=== PATIENT | female | born 1960 | race Caucasian/White ===

== ENCOUNTER 2024-11-30 10:07 | Observation (INO) ==
--- NOTE | 2024-11-13 11:26 | PAT Medication Instructions ---
Medication Instructions Date of Service November 13, 2024 Home Medications apixaban 2.5 mg tablet (Eliquis) 2.5 mg PO BID atenolol 25 mg tablet 25 mg PO HS citalopram 40 mg tablet (Celexa) 20 mg PO HS lorazepam 1 mg tablet 1 mg PO HS trazodone 150 mg tablet 150 mg PO HS ASK your prescriber and surgeon apixaban 2.5 mg tablet (Eliquis) 2.5 mg PO BID(in order for spinal or epidural anesthesia, Eliquis needs to be stopped 72 hours/3 days before surgery. Please check if okay with doctor that prescribes this to you) Take evening before surgery atenolol 25 mg tablet 25 mg PO HS citalopram 40 mg tablet (Celexa) 20 mg PO HS lorazepam 1 mg tablet 1 mg PO HS trazodone 150 mg tablet 150 mg PO HS Other Notes NOTHING TO EAT OR DRINK AFTER MIDNIGHT. If you have any questions please call us at [phone] or [phone] or [phone] or [phone]
--- NOTE | 2024-11-17 15:17 | Anesthesiology Consultation ---
Date of Service November 17, 2024 Assessment & Plan (1) Encounter for pre-operative examination: - Infectious disease screening: Per assessment on 11/17/24- No known recent infectious disease contacts or current infectious disease symptoms. - Outpatient joint assessment: Pt currently scheduled for inpatient pathway. If surgeon requests review for outpatient joint pathway, patient is not recommended candidate for outpatient joint program from anesthesia standpoint based on available information. - Eliquis instructions: patient made aware that for neuraxial anesthesia, Eliquis needs to be held 72 hours/3 days prior to surgery. Patient voiced understanding/will check if okay with prescriber. - Severe spinal headache after spinal/ - Cardiology visit (10/09/24): "Patient is doing well and denies any symptoms at this time.. Patient has functional class II SOB with exertion.. However did not have any chest pain, chest tightness, shortness of breath or any syncopal events.. She has no symptoms suggestive of ACS, HF or malignant arrhythmias..Will recommend continuation of Eliquis.. Atenolol.. Will recommend follow-up in 1 year.." Chart Review Chart Review: Acceptable Risk for Surgery and Patient seen in Pre Admission Testing Teaching & Discussion Pre-Anesthesia Teaching/Discussion Notes: Instructed NPO after midnight before surgery,except medications with 15 cc of water. Medication instructions provided according to the PAT guidelines. History Surgery Operation Date: 11/30/24 07:00 Proposed Procedures p Left Total Hip Arthroplasty - Erwin Walker MD Height/Weight Height: 5 ft 1 in Weight: 66.7 kg Allergies Allergy/AdvReac Type Severity Reaction Status Date / Time No Known Allergies Allergy Verified 11/09/24 12:14 Medications Home Medications Medication Instructions Recorded Confirmed Last Taken apixaban 2.5 mg tablet (Eliquis) 2.5 mg PO BID 11/09/24 11/09/24 Unknown atenolol 25 mg tablet 25 mg PO HS 11/09/24 11/09/24 Unknown citalopram 40 mg tablet (Celexa) 20 mg PO HS 11/09/24 11/09/24 Unknown lorazepam 1 mg tablet 1 mg PO HS 11/09/24 11/09/24 Unknown trazodone 150 mg tablet 150 mg PO HS 11/09/24 11/09/24 Unknown Past Medical History Medical History Anxiety Arthritis Blood clotting disorder Positive for RH factor CAD (coronary artery disease) Nonobstructive per cardio records Depression History of atrial fibrillation Taking Eliquis History of COVID-19 Hypertension IBS (irritable bowel syndrome) Pacemaker Medtronic (for bradycardia) Replaced in 2014 Follows with [facility] [place] Spinal stenosis Exercise / Class Metabolic Activity III < 4 Walking/Shop/Light housework Past Family History Family History Mother Diabetes Past Surgical History Surgical History History of bilateral tubal ligation History of cardiac cath Most recent 2018- no stents History of section x2 History of colonoscopy History of endometrial ablation History of esophagogastroduodenoscopy (EGD) History of postoperative nausea and vomiting History of repair of hiatal hernia History of tooth extraction Past Anesthesia History No Family Hx of Anesthesia Complications (except mother PONV) and Other (Severe spinal headache with ) History of PONV History of PONV and Hx of Motion Sickness Social History Smoking Status: Never smoker Do You Dip or Chew Tobacco: No Hx Alcohol Use: Yes Alcohol type: beer alcohol intake frequency: a few times a week Hx Substance Use: No substance use type: does not use Review of Systems Patient denies chest pain, shortness of breath, fever, chills, cough, wheezing, palpitations. Physical Exam Vital Signs BP 123/84 P 69 SP02 97%RA RESP 16 Physical Full cervical extension range of motion. Full TMJ range of motion. TMD 3 finger breaths Mallampati Score II Dentition: full upper denture Lungs: clear throughout to auscultation Cardiac: regular rate and rhythm, no murmurs noted Spine: normal Carotid arteries: negative bruit Extremities: no LE edema Lab Results Anesthesia Preop Results Results Anesthesia Widget: WBC 6.62 K/ul (4.8-10.8) 11/17/24 Hgb 12.6 g/dl (12.0-16.0) 11/17/24 Hct 38.1 % (37.0-47.0) 11/17/24 Plt 244 K/uL (130-400) 11/17/24 Na 136 mmol/L (136-145) 11/17/24 K 4.1 mmol/L (3.5-5.1) 11/17/24 Cl 105 mmol/L (98-107) 11/17/24 CO2 27 mmol/L (21-32) 11/17/24 BUN 11 mg/dl (6-23) 11/17/24 Creat 1.14 mg/dl (0.6-1.2) 11/17/24 Glucose Level 95 mg/dl (70-99(Fasting)) 11/17/24 PT 10.7 Seconds (9.0-12.0) 11/17/24 PTT 29 Seconds (21-31) 11/17/24 INR 1.0 (0.9-1.1) 11/17/24 Urine Color Yellow 11/17/24 Urine Appearance Clear (Clear) 11/17/24 Urine pH 5.5 (4.5-7.5) 11/17/24 Urine Specific [place] 1.018 (1.000-1.030) 11/17/24 Urine Protein Negative (Negative) 11/17/24 Urine Glucose (UA) Negative (Negative) 11/17/24 Urine Ketones Trace (Negative) H 11/17/24 Urine Blood 1+ (Negative) H 11/17/24 Urine Nitrite Negative (Negative) 11/17/24 Urine Bilirubin Negative (Negative) 11/17/24 Urine Urobilinogen Negative (Negative) 11/17/24 Urine Leukocyte Esterase Negative (Negative) 11/17/24 Urine WBC (Auto) 0-5 /hpf (0-5) 11/17/24 Urine RBC (Auto) 6-10 /hpf (0-2) H 11/17/24 Urine Hyaline Casts (Auto) 0-2 /lpf (0-2) 11/17/24 Urine Epithelial Cells (Auto) 0-2 /hpf (0-2) 11/17/24 Urine Bacteria (Auto) None Seen (None Seen) 11/17/24 Blood Type O Positive 11/17/24 Antibody Screen NEGATIVE 11/17/24 Testing Electrocardiogram Date: 10/09/24 Tracings done/reviewed at cardio visit: "EKG shows atrial sensed and ventricular paced rhythm" 66bpm. Echocardiogram Date: 05/30/24 EF 55%. Mild AI/CA. Mild to moderate TI. Trace PI. Borderline pulmonary HTN. Indeterminate diastolic function. Other Testing Pacer check Date: 08/15/24 4 AT/AF episodes. No significant device-related abnormalities noted. Mode DDDR. Battery longevity 16 months.
--- NOTE | 2024-11-20 14:44 | History & Physical Report ---
Date of Service November 20, 2024 Assessment & Plan (1) Avascular necrosis of bone of left hip: Plan: PRE-OP Diagnosis: Left hip avascular necrosis Planned Procedure: Left total hip arthroplasty Plan: Patient is scheduled to undergo this procedure at the [facility] with Dr. Walker on November. Risks and complications of the procedure such as: Infection, bleeding, pain, scarring, nerve blood vessel damage, weakness, wound problems, stiffness, incomplete relief of symptoms, hardware failure, hardware loosening, wear, fracture, tendon or ligament injury, dislocation, leg length inequality, blood clots, Embolism, heart attack, stroke and were explained to the patient at her visit today. Informed consent to perform the procedure was obtained. Patient has an appointment to meet with anesthesia later today and while there will obtain CBC with differential, complete metabolic panel, PT/INR, blood type and screen, urinalysis, urine culture and sensitivity, EKG, and a nasal culture for MRSA. Patient will also need preoperative medical clearance from their radial drill press set up operator and primary care provider. Patient states that she plans on doing in-home physical therapy for the first 1 to 2 weeks postoperatively before transitioning to outpatient physical therapy somewhere near her home. Patient will need a walker, raised toilet seat, shower chair and a hip kit. During today's visit we reviewed the total hip packet as well as precautions. We discussed discharge planning from the hospital. Patient states she already has a handicap placard for her vehicle. We discussed lectures offered by [facility] in regards to joint replacement surgery via Zoom. I advised the patient that upon discharge from hospital we will prescribe a narcotic pain medication and anti-inflammatory. Patient will also resume her Eliquis for blood clot prevention. Patient will be scheduled for 2-week postoperative follow-up visit with myself on December 13, 2024. This chart was completed utilizing [employer] voice recognition software. Grammatical errors, random word insertions, pronoun errors, and in complete sentences are an occasional consequence of the system. Any questions or concerns about the content, text, or information contained within the body of this dictation should be addressed directly to the physician for clarification. History of Present Illness Chief Complaint: Chief Complaint: Left hip pain Primary Care Provider: Benja Huff History of Present Illness (including history relevant to procedure): This 65-year-old female presents to the clinic today for preoperative history and physical. Patient states that left hip pain which began summer 2023 after she fell on her buttocks while cleaning. Recently, she fell on her grandson's garage which caused a great increase in pain. Her pain is down her leg, but notes it is worse near her hip. She received injections, most recently 09/12/[address] Barnett, which she states has not helped alleviate her pain. She denies any numbness or tingling. She notes that she has Bradycardia. Additionally, she states that she saw her PCP for this pain initially, and was prescribed steroids which resulted in A-Fib. She was then placed on Eliquis, but has since not experienced another episode of A-Fib. She also notes she has Factor V. Due to failed conservative management patient elected to proceed with surgical intervention. Review Of Systems: A 12 point review of systems is performed and is unremarkable except for those things stated in the HPI past medical history. Past Medical History: Problems: Avascular necrosis of left femoral head Gluteal tendinitis, left hip Left hip pain History of atrial fibrillation Hypertension Anxiety/depression History of factor V Leiden Procedure History Procedure Procedure Date Comments section x 2 Pacemaker implantation Cardiac catheterization Cardiac ablation Hiatal hernia surgery - PACEMAKER Allergies and Sensitivities: NKA No Known Medication Allergies Current Home Meds: (Last Updated 11/17 14:02) LORazepam apixaban (Eliquis 2.5 mg oral tablet) atenolol citalopram (CeleXA) traMADol (traMADol 50 mg oral tablet) 50 mg PO q4h PRN: as needed for pain not to exceed 400 mg/day traZODone Initial Wt: 11/17 66.8 kg 147 lb Allergies Allergy/AdvReac Type Severity Reaction Status Date / Time No Known Allergies Allergy Verified 11/09/24 12:14 Home Medications Medication Instructions Recorded Confirmed Type apixaban 2.5 mg tablet (Eliquis) 2.5 mg PO BID 11/09/24 11/09/24 History atenolol 25 mg tablet 25 mg PO HS 11/09/24 11/09/24 History citalopram 40 mg tablet (Celexa) 20 mg PO HS 11/09/24 11/09/24 History lorazepam 1 mg tablet 1 mg PO HS 11/09/24 11/09/24 History trazodone 150 mg tablet 150 mg PO HS 11/09/24 11/09/24 History Past Med/Surg History Problem List (Updated 11/20/24 @ 14:43 by Ruy Renee PA-C) Avascular necrosis of bone of left hip Encounter for pre-operative examination Medical History CAD (coronary artery disease) Nonobstructive per cardio records History of atrial fibrillation Taking Eliquis Depression Anxiety Arthritis Spinal stenosis IBS (irritable bowel syndrome) Blood clotting disorder Positive for RH factor Pacemaker Medtronic (for bradycardia) Replaced in 2014 Follows with [facility] [place] Hypertension History of COVID-19 Surgical History History of postoperative nausea and vomiting History of endometrial ablation History of bilateral tubal ligation History of section x2 History of repair of hiatal hernia History of esophagogastroduodenoscopy (EGD) History of colonoscopy History of tooth extraction History of cardiac cath Most recent 2018- no stents Family History Mother Diabetes Social History Smoking Status: Never smoker Second Hand Exposure: Yes; Do You Dip or Chew Tobacco: No; Hx Alcohol Use: Yes Alcohol type: beer Hx Substance Use: No Preferred Language: Romanian Communication Ability: Effective Clipper Automatic Required: No Beliefs That Will Affect Care: None Current Living Situation: Significant Other Feels Safe at Home: Yes Assistive Devices: Cane, Denture - Upper, Glasses and Walker Review of Systems All systems reviewed & are unremarkable except as noted in Subjective Physical Exam Physical Exam: Physical Exam: (relevant to the procedure, including heart and lung evaluation) General: Alert and oriented x 3 with proper grooming and hygiene Eyes: Pupils are equal reactive to light with accommodation. Extraocular movements are intact Throat: Posterior oropharynx clear with absence of edema, erythema or exudate. Dentition is appropriate. Cardiac: Regular rate and rhythm with no murmurs or gallops appreciated Lungs: Clear to auscultation throughout with no wheezing, rales or rhonchi Abdomen: Nonobese, nondistended, nontender with NABS Extremities: Left hip; flexion is limited to 75 degrees, internal rotation 0 degrees and external rotation to 30 degrees. Logroll test positive. Straight leg raise test positive. Stinchfield test is positive. Impingement test is positive. Patient experiences tenderness to palpation in the groin area. Patient's gait is antalgic Neuro: Cranial nerves II to XII are intact no motor or sensory deficit Skin: Normal appearance no open skin areas or discharge Results & Data Diagnostic Findings Studies (relevant to the procedure): CT of the left hip from 09/21/24 demonstrates that there is a femoral head fracture and arthritic change. Subchondral cyst. Suspicious for AVN. X-rays of the left hip obtained 08/28/24 in the [facility] which show no fractures. Joint spaces well maintained. Acetabular protrusio
[~2024-11-30 10:07] MED LIST: BUPIVACAINE 0.5 % 5 MG/1 ML PF 10ML VIAL ONE; PROPOFOL IV EMULSION 10 MG/ML 100 ML VIAL IV ONE
[2024-11-30] MEDS: LR 60ML/HR IV SCH (10:33)
[2024-11-30] MEDS: LR 500ML BOLUS, THEN 15ML/HR IV SCH (10:44)
[2024-11-30] MEDS: ACETAMINOPHEN 500 MG TAB PO SCH ×2 (10:45→21:27)
[2024-11-30] MEDS: CeleBREX 200 MG CAP PO SCH ×2 (10:45→21:25)
[2024-11-30] MEDS: FAMOTIDINE 20 MG TAB PO SCH (10:45)
[2024-11-30] MEDS: dexAMETHasone**PF** 10 MG/ML VIAL IV SCH (10:45)
[2024-11-30] MEDS ORDERED: MIDAZOLAM HCL 1 MG/ML 2ML VIAL ONE (11:06)
[2024-11-30] MEDS ORDERED: LIDOCAINE 2% 2 ML VIAL/AMP(20MG/ML) INFIL ONE (11:06)
--- NOTE | 2024-11-30 12:02 | History & Physical Bridge Note ---
Date of Service November 30, 2024 History & Physical Bridge Note I have examined the patient, reviewed the History & Physical and in the interval since the performance of the History & Physical I have noted the following changes of clinical significance: no changes noted
[2024-11-30] MEDS: TRANEXAMIC ACID 1,000 MG **IV Pre-op IV SCH (12:12)
[2024-11-30] MEDS: ORTHO JOINT ANESTHETIC ONE (13:04)
[2024-11-30] MEDS ORDERED: LABETALOL HCL IV 5 MG/ML 20ML IV ONE (13:20)
[2024-11-30] MEDS: ROPIVACAINE 0.5% HCL/PF 246 MG, Ketorolac (*for OR use only*) 30 MG, EPINEPHrine 30MG/3... INFIL SCH (13:55)
--- NOTE | 2024-11-30 14:20 | Operative Report ---
Post Operative Report Pre & Post Diagnosis Operation Date: 11/30/24 11:50 Pre-Op Diagnosis: Avascular necrosis of left femoral head Post-Op Diagnosis: Avascular necrosis of left femoral head I identified the patient and participated in the time-out.: Yes Procedure Operation Date: 11/30/24 11:50 Actual Procedures p Left Total Hip Arthroplasty(Left) - Erwin Walker MD Surgeon Erwin Walker MD Record Changer Tester WAYNE Renee PA-C. No resident or fellow was available to assist. Estimated Blood Loss 100 Findings Consistent with Post-Op Diagnosis Specimens Left femoral head Anesthesia Type Spinal MAC Complications none Disposition Disposition: Recovery Room Indications 64-year-old female with left hip pain refractory to conservative management. X- rays and an MRI were obtained. These demonstrate findings consistent with avasc ular necrosis of the left femoral head without collapse. Having failed extensive nonsurgical management she is now a candidate for surgery. I had a long discussion with her about the risks and benefits of surgery, alternatives to surgery, and expected outcomes. After reviewing all these she elected to proceed with surgery. All questions were answered. Informed consent was signed. Description of Procedure Patient was identified in the preoperative holding area where the surgical site, left hip, was marked. A spinal anesthetic was placed, then the patient was brought back to the main operating room, placed in the operating table and moved into the lateral decubitus position. Axillary roll was placed. All bony prominences were padded. Perioperative antibiotics and tranexamic acid 1 gram IV were administered. The operative extremity was prepped and draped in the normal sterile fashion. Prior to incision a multidisciplinary timeout was called. All in the room were in agreement. We began by making an incision for a posterior approach to the hip. We dissected down through subcutaneous tissues to the level of the fascia. The f ascia was incised in line with the incision. Charnley bow was placed. Fatty tissue was reflected posteriorly off the back of the greater trochanter to expose the piriformis and short external rotators of the hip. Quadratus femoris was taken off the femur subperiosteally. The piriformis and short external rotators were dissected off the posterior aspect of the hip. A box cut was made in the capsule. Inferior hip capsule was released off the femur. The femoral head was dislocated. The femoral neck cut was made at our preoperative template. The acetabulum was then exposed. The labrum was sharply excised. Contents of the cotyloid fossa were removed with electrocautery. We then began reaming at a size 8 mm less than our preoperative template. We reamed up by 1 [address] the way up to a size 48 mm cup. This gave us good bleeding cancellus bone circumferentially. The acetabulum was then irrigated out and dried. The real [place] Gription cup was then impacted down into position with 40 degrees of lateral opening and 25 degrees of anteversion. A single cancellous bone screw was placed up into the ilium. Excellent fixation was obtained. A trial liner for a 32 mm femoral head was then placed. Next we turned our attention to the femur. The lateral neck was removed with a box osteotome. Intramedullary guide was used to establish the intramedullary canal. We then broached all the way up to a size 2. We began trialing with a standard offset neck and a +5 head. Hip was reduced. Leg lengths were symmetric. The hip was stable in extension and external rotation, and stable in the sleeper position. At 90 degrees of hip flexion the hip could be internally rotated 55 degrees before levering out of the cup. I was very happy with the stability exam. Therefore the hip was dislocated and the femoral trial was removed. The acetabulum was re-exposed, and the trial liner was removed. Whitehall hole eliminator screw was placed. An Altrx polyethylene liner for a 32 mm femoral head was then impacted into the shell. The locking mechanism was checked to ensure that it had engaged which it had. The femur was re-exposed. The femoral canal was irrigated and dried. The real Actis femoral stem was opened up. This was impacted down into position. The femoral head was opened up and gently impacted down onto the trunnion. The hip was atraumatically reduced. Another 1 gram of IV tranexamic acid was started prior to closure. The wound was irrigated out with sterile Betadine solution. The periarticular injection cocktail was then placed. The short external rotators, piriformis, and posterior capsule were repaired through drill holes in the greater trochanter using #2 Vicryl. The fascia was run with a looped #1 PDS. The subcutaneous layer was closed with #1 PDS. The dermal layer was closed with 2-0 Vicryl. Zip line was used for the skin followed by a Silverlon dressing. A compressive dressing was then placed. The patient was then rolled supine. Leg lengths were rechecked and were symmetric. An abduction pillow was placed. Sedation was lifted and the patient was transferred to the recovery room in stable condition. Summary of implants: Depuy [place] Gription Acetabular Shell Sector Cup, 48 mm outer diameter [place] Cancellous bone screw, 6.5 x 40 mm Whitehall hole eliminator Dallas Altrx Polyethylene Acetabular Liner, Neutral, with a 32 mm inner diameter DePuy Actis collared cementless Femoral stem, 12/14 taper, size 2 standard offset 32 mm ceramic femoral head with +5 offset Postoperative course: Patient will be admitted overnight from the recovery room. Patient will be weightbearing as tolerated with posterior hip precautions. Aspirin for DVT prophylaxis I attest to the content of the Intraoperative Record and any orders documented therein. Any exceptions are noted below.
--- NOTE | 2024-11-30 14:26 | Operative Report ---
Post Operative Report Pre & Post Diagnosis Operation Date: 11/30/24 11:50 Pre-Op Diagnosis: Avascular necrosis of bone of left hip Post-Op Diagnosis: Avascular necrosis of bone of left hip I identified the patient and participated in the time-out.: Yes Procedure Operation Date: 11/30/24 11:50 Actual Procedures p Left Total Hip Arthroplasty(Left) - Erwin Walker MD Surgeon Erwin Walker MD Power Generation Plant Operator WAYNE Renee PA-C. No resident or fellow was available to assist. Estimated Blood Loss 100 Findings Consistent with Post-Op Diagnosis Specimens femoral head Description of Procedure I was present during the entire case assisting with positioning, prepping, draping, wound retraction, wound closure, dressing and abduction pillow placement. No fellow present. Please see Dr. Walker surgical note for specifics of the case. I attest to the content of the Intraoperative Record and any orders documented therein. Any exceptions are noted below.
[2024-11-30] MEDS ORDERED: NALOXONE HCL 0.4 MG/1 ML VIAL/CARP IV PRN (14:29)
[2024-11-30] MEDS ORDERED: MAGNESIUM HYDROXIDE SUSP 30 ML UDC PO PRN (14:29)
[2024-11-30] MEDS ORDERED: ALUMINUM/MAGNESIUM SUSP 30 ML UDC PO PRN (14:29)
[2024-11-30] MEDS ORDERED: METOCLOPRAMIDE HCL INJ 5 MG/ML 2 ML VIAL IV PRN (14:29)
[2024-11-30] MEDS ORDERED: ONDANSETRON INJ 2 MG/ML 2 ML VIAL IV PRN (14:29)
[2024-11-30] MEDS ORDERED: diphenhydrAMINE 50 MG/ML VIAL IV PRN (14:29)
--- NOTE | 2024-11-30 15:01 | XRay Report ---
XR pelvis 1-2V routine CLINICAL HISTORY: In PACU - Post Surgical COMPARISON: 11/17/2024 FINDINGS: Left hip prosthesis shows no hardware complication. There is expected soft tissue gas. IMPRESSION: Unremarkable postoperative exam. ACT 112: Negative or not required by law. Electronically signed by: Alber Quan M.D. 11/30/2024 2:59 PM
[2024-11-30] MEDS: SODIUM CHLORIDE 0.9% 1,000 ML IV SCH (16:09)
[2024-11-30] MEDS: KETOROLAC TROMETHAMINE 15 MG/ML VIAL IV SCH (16:20)
[2024-11-30] MEDS: Scopolamine CHECK PATCH PLACEMENT SCH (16:50)
[2024-11-30] MEDS: ATENOLOL 25 MG TABLET PO SCH (21:25)
[2024-11-30] MEDS: CITALOPRAM 20 MG TAB PO SCH (21:25)
[2024-11-30] MEDS: DOCUSATE SODIUM 100 MG CAP PO SCH (21:26)
[2024-11-30] MEDS: SENNA 8.6 MG TAB PO SCH (21:26)
[2024-11-30] MEDS: LORazepam 1 MG TAB PO SCH (21:26)
[2024-12-01 06:08] LABS: Hematocrit (blood only) 34.5 % (37.0-47.0); Hemoglobin 11.6 g/dl (12.0-16.0); Immature Granulocytes # (auto) 0.02 K/uL (0.01-0.20); Immature Granulocytes % (auto) 0.2 %; Mean Corpuscular Hemoglobin 32.9 pg (25.0-34.0); Mean Corpuscular Volume 97.7 fL (80.0-100.0); Platelet Count 195 K/uL (130-400); RDW Standard Deviation 46.8 fL (36.4-46.3); Red Blood Count 3.53 M/uL (4.20-5.40); White Blood Count 8.76 K/ul (4.8-10.8)
[2024-12-01 06:24] LABS: Anion Gap 4.0 (3-11); Blood Urea Nitrogen 12.0 mg/dl (6-23); Calcium 8.4 mg/dl (8.6-10.3); Carbon Dioxide 29.0 mmol/L (21-32); Chloride 105.0 mmol/L (98-107); Creatinine Clr Calc Pharmacy 59.5 ml/min; Glucose 120.0 mg/dl (70-99(Fasting)); Potassium 4.3 mmol/L (3.5-5.1); Sodium 138.0 mmol/L (136-145)
[2024-12-01 08:19] VITALS: BP 103/67; PULSE 69; RESP 15; TEMP 98.1; O2SAT 98
[2024-12-01] MEDS: APIXABAN 2.5 MG TAB PO SCH (08:32)
[2024-12-01] MEDS: MULTIVITAMIN TAB PO SCH (08:32)
[2024-12-01] MEDS: dexAMETHasone 10 MG in SYRINGE 0 ML IV SCH (08:33)
--- NOTE | 2024-12-01 09:34 | Orthopedic Progress Note ---
Date of Service December 01, 2024 Assessment & Plan (1) S/P total left hip arthroplasty: Plan: Total hip precautions reviewed Weightbearing as tolerated with walker assistance Abduction pillow use x 6 weeks Keep Silverlon dressing in place Ice with easy wrap DVT prophylaxis with Eliquis and MICH stockings Pain control with p.o. medication Plan is to discharge home today with in-home physical therapy for the first 2 weeks Follow-up at [facility] orthopedics as previously scheduled. With questions contact our clinic at [phone] Admission and Anticipated Discharge Date Admission Date: November 30, 2024 Subjective This 64-year-old female is day 1 status post left total hip arthroplasty. Patient states she is doing very well. She states that her pain is well- controlled with the p.o. pain medication. She is hoping to be discharged home later this morning. Currently she denies chest pain, shortness of breath, fever, chills, sweats, nausea, vomiting, diarrhea, difficulty voiding or numbness or tingling in her left lower extremity. Review of Systems Review of Systems: All systems reviewed & are unremarkable except as noted in Subjective Physical Exam Physical Exam: Left hip: Outer dressing was removed. Silverlon is clean dry and intact and left in place. Patient is able to easily perform active straight leg raise test. She is able to actively dorsi and plantarflex her foot. Her quad strength is 4 out of 5. She tolerates passive hip flexion beyond 80 degrees. She does feel slight pulling sensation with light passive internal and external rotation. She has no pain with logroll testing. She is neurovascularly intact and able to easily transition from a seated to a standing position using her walker. Results & Data Vital Signs (Past 12 Hours) Vital Signs Temp Pulse Resp BP Pulse Ox O2 Del Method 12/01/24 08:17 36.7 C 69 15 103/67 98 Room Air 12/01/24 02:08 36.5 C 70 133/86 96 Room Air 11/30/24 22:53 36.9 C 63 18 106/53 L 94 Room Air Diagnostic Findings Laboratory Results WBC 8.76 K/ul (4.8-10.8) 12/01/24 05:48 RBC 3.53 M/uL (4.20-5.40) L 12/01/24 05:48 Hgb 11.6 g/dl (12.0-16.0) L 12/01/24 05:48 Hct 34.5 % (37.0-47.0) L 12/01/24 05:48 MCV 97.7 fL (80.0-100.0) 12/01/24 05:48 MCH 32.9 pg (25.0-34.0) 12/01/24 05:48 MCHC 33.6 g/dL (32.0-36.0) 12/01/24 05:48 RDW Std Deviation 46.8 fL (36.4-46.3) H 12/01/24 05:48 RDW Coeff of Emerald 13.1 % (11.5-14.5) 12/01/24 05:48 Plt Count 195 K/uL (130-400) 12/01/24 05:48 MPV 9.1 fL (9.4-12.4) L 12/01/24 05:48 Immature Gran % (Auto) 0.2 % 12/01/24 05:48 Neut % (Auto) 75.2 % 12/01/24 05:48 Lymph % (Auto) 14.0 % 12/01/24 05:48 [place] % (Auto) 10.4 % 12/01/24 05:48 Eos % (Auto) 0.1 % 12/01/24 05:48 Baso % (Auto) 0.1 % 12/01/24 05:48 Neut # (Auto) 6.58 K/uL (1.40-6.50) H 12/01/24 05:48 Lymph # (Auto) 1.23 K/uL (1.20-3.40) 12/01/24 05:48 [place] # (Auto) 0.91 K/uL (0.11-0.59) H 12/01/24 05:48 Eos # (Auto) 0.01 K/uL (0.00-0.50) 12/01/24 05:48 Baso # (Auto) 0.01 K/uL (0.00-0.20) 12/01/24 05:48 Immature Gran # (Auto) 0.02 K/uL (0.01-0.20) 12/01/24 05:48 Sodium 138 mmol/L (136-145) 12/01/24 05:48 Potassium 4.3 mmol/L (3.5-5.1) 12/01/24 05:48 Chloride 105 mmol/L (98-107) 12/01/24 05:48 Carbon Dioxide 29 mmol/L (21-32) 12/01/24 05:48 Anion Gap 4 (3-11) 12/01/24 05:48 BUN 12 mg/dl (6-23) 12/01/24 05:48 Creatinine 0.85 mg/dl (0.6-1.2) 12/01/24 05:48 Est Cr Clr Drug Dosing 59.5 ml/min 12/01/24 05:48 eGFR 77.41 12/01/24 05:48 BUN/Creatinine Ratio 14.1 (10-20) 12/01/24 05:48 Glucose 120 mg/dl (70-99(Fasting)) H 12/01/24 05:48 Calcium 8.4 mg/dl (8.6-10.3) L 12/01/24 05:48 Impressions Pelvis X-Ray 11/30/24 14:29 XR pelvis 1-2V routine CLINICAL HISTORY: In PACU - Post Surgical COMPARISON: 11/17/2024 FINDINGS: Left hip prosthesis shows no hardware complication. There is expected soft tissue gas. IMPRESSION: Unremarkable postoperative exam. ACT 112: Negative or not required by law. Electronically signed by: Alber Quan M.D. 11/30/2024 2:59 PM
--- NOTE | 2024-12-01 09:43 | Discharge Summary ---
Date of Service December 01, 2024 Admission HPI Per Admitting Provider History of Present Illness (including history relevant to procedure): This 65-year-old female presents to the clinic today for preoperative history and physical. Patient states that left hip pain which began summer 2023 after she fell on her buttocks while cleaning. Recently, she fell on her grandson's garage which caused a great increase in pain. Her pain is down her leg, but notes it is worse near her hip. She received injections, most recently 09/12/[address] Barnett, which she states has not helped alleviate her pain. She denies any numbness or tingling. She notes that she has Bradycardia. Additionally, she st ates that she saw her PCP for this pain initially, and was prescribed steroids which resulted in A-Fib. She was then placed on Eliquis, but has since not experienced another episode of A-Fib. She also notes she has Factor V. Due to failed conservative management patient elected to proceed with surgical intervention. Review Of Systems: A 12 point review of systems is performed and is unremarkable except for those things stated in the HPI past medical history. Past Medical History: Problems: Avascular necrosis of left femoral head Gluteal tendinitis, left hip Left hip pain History of atrial fibrillation Hypertension Anxiety/depression History of factor V Leiden Procedure History Procedure Procedure Date Comments section x 2 Pacemaker implantation Cardiac catheterization Cardiac ablation Hiatal hernia surgery - PACEMAKER Allergies and Sensitivities: NKA No Known Medication Allergies Current Home Meds: (Last Updated 11/17 14:02) LORazepam apixaban (Eliquis 2.5 mg oral tablet) atenolol citalopram (CeleXA) traMADol (traMADol 50 mg oral tablet) 50 mg PO q4h PRN: as needed for pain not to exceed 400 mg/day traZODone Initial Wt: 11/17 66.8 kg 147 lb Admission Exam Per Admitting Provider Physical Exam: (relevant to the procedure, including heart and lung evaluation) General: Alert and oriented x 3 with proper grooming and hygiene Eyes: Pupils are equal reactive to light with accommodation. Extraocular movements are intact Throat: Posterior oropharynx clear with absence of edema, erythema or exudate. Dentition is appropriate. Cardiac: Regular rate and rhythm with no murmurs or gallops appreciated Lungs: Clear to auscultation throughout with no wheezing, rales or rhonchi Abdomen: Nonobese, nondistended, nontender with NABS Extremities: Left hip; flexion is limited to 75 degrees, internal rotation 0 degrees and external rotation to 30 degrees. Logroll test positive. Straight leg raise test positive. Stinchfield test is positive. Impingement test is positive. Patient experiences tenderness to palpation in the groin area. Patient's gait is antalgic Neuro: Cranial nerves II to XII are intact no motor or sensory deficit Skin: Normal appearance no open skin areas or discharge Principal Diagnosis Left hip osteoarthritis (avascular necrosis) Discharge Exam Left hip: Outer dressing was removed. Silverlon is clean dry and intact and left in place. Patient is able to easily perform active straight leg raise test. She is able to actively dorsi and plantarflex her foot. Her quad strength is 4 out of 5. She tolerates passive hip flexion beyond 80 degrees. She does feel slight pulling sensation with light passive internal and external rotation. She has no pain with logroll testing. She is neurovascularly intact and able to easily transition from a seated to a standing position using her walker. Discharge Data Allergies Allergy/AdvReac Type Severity Reaction Status Date / Time No Known Allergies Allergy Verified 11/30/24 10:23 Procedures Performed Operation Date: 11/30/24 11:50 Actual Procedures p Left Total Hip Arthroplasty(Left) - Erwin Walker MD Hospital Course (1) S/P total left hip arthroplasty: Patient had an uneventful overnight stay following left total hip arthroplasty. Patient is very pleased with results of the surgery. She states she is set up for in-home physical therapy to begin later this weekend. She understands all of the precautions and she needs to take to prevent dislocation. She will resume her Eliquis for DVT prophylaxis. Total hip precautions reviewed Weightbearing as tolerated with walker assistance Abduction pillow use x 6 weeks Keep Silverlon dressing in place Ice with easy wrap DVT prophylaxis with Eliquis and MICH stockings Pain control with p.o. medication Plan is to discharge home today with in-home physical therapy for the first 2 weeks Follow-up at [facility] orthopedics as previously scheduled. With questions contact our clinic at [phone] Total Time Total Time Spent Total Time Spent (In Minutes): 20 mins Discharge Plan Discharge Items Patient Disposition: Home - Home Health Services Reason For Visit: Idiopathic Aseptic Necrosis of Left Femur Discharge Diagnosis: s/p left total hip arthroplasty Activity: As commented below Lifting: None Bathing: Keep incision dry Bathing Comment: may shower tomorrow Sexual Activity: Wait until after follow-up appointment Exercise/Sports: Wait until after follow-up appointment Driving/Machine Use: No driving until cleared by family support specialist Weightbearing: Left weightbearing Weightbearing Comment: as tolerated with walker Non-emergency contact: Surgeon Call non-emergency contact if: you have any medication questions, your pain is not controlled, your temperature is above 101.5, your wound has increased drainage and your wound pain has increased Follow-up/Referrals: Benja Huff [Primary Care Provider] - Diet: Regular Addtl Attending Provider Instructions: Post-operative Instructions Dear Patient and Family/Friends, Before you are discharged from the hospital, it is important to know what to expect when you get home after surgery. To that end, we have created this sheet of discharge instructions which covers many commonly asked questions. Make sure you go through this sheet in its entirety with your nurse before you are discharged. Please note that we will go over the specifics of your surgery and recovery when you return for your first post-operative visit. Sincerely, Dr. Walker Medications: 1. Oxycodone 5 mg: Take 1 to 2 tablets every 4-6 hours as needed for postoperative pain control. A prescription for this medication will be sent to your pharmacy 2. Eliquis 2.5 mg: Take 1 tablet twice daily for blood clot prevention. A prescription for 60 tablets was sent to your pharmacy. For continued use after this prescription expires contact your pad machine feeder. 3. Diclofenac sodium 75 mg: Take 1 tablet twice daily for 2 weeks postoperatively for pain and inflammation relief. A prescription for this medication will be sent to your pharmacy with 1 refill 4. Extra strength Tylenol 500 mg: Take 2 tablets every 6-8 hours as needed for additional pain relief. Please purchase this medication. Pain Expect to be in a fair amount of pain after surgery. Remember, our goal is not to eliminate your pain, but to make it tolerable. It is a good idea to stay ahead of your pain by taking the medications you were prescribed once you get home. Typically, the pain starts improving 3-7 days after surgery. You should start weaning off the narcotic pain medication (oxycodone, hydrocodone, hydromorphone, morphine) as soon as your pain improves. Please call our office if your pain is not adequately controlled. Ice Ice your operative site at least 5 times a day for 15-30 minutes at a time. Make sure you have a thin cloth between the ice or cooling unit and your skin to prevent lagunas bite. This is especially important if you received a nerve block. Continue icing your operative site for the first 5-7 days after surgery, then as needed. Diet/Nausea/Vomiting Start by drinking clear liquids and eating crackers. If you can tolerate this, then you may resume your normal diet. If you feel nauseated or vomit, take Zofran/ondansetron (if prescribed). Please call our office if you have intractable nausea or vomiting, or, if after hours, you may go to the Emergency Room for help. Constipation Constipation is a common side effect of narcotic pain medication. If you have not had a bowel movement within 2 days after surgery, we recommend purchasing an over the counter laxative such as Milk of Magnesia, Dulcolax, or Miralax from a local pharmacy, and taking it as instructed. Call our clinic if any questions. Nerve block The anesthesia team sometimes places a nerve block to help with post-operative pain control. This results in significant numbness and inability to move the extremity. The nerve block usually wears off in 8-12 hours, but sometimes can last up to 24 hours. Please call our office if you are still unable to move your extremity after 24 hours, unless you received a pain pump to take home. Nerve blocks typically wear off quickly, so start taking pain medication as soon as you start feeling soreness near your surgical site. Weight bearing and Range of Motion. Do not bear any weight through your operative extremity immediately after surgery. If you had upper extremity surgery, do not lift anything with that arm. If you are in a knee brace, keep it locked in place until your follow-up. We will discuss your weight bearing, range of motion, and lifting restrictions in detail at your first post-operative appointment. Continuous Passive Motion (CPM) Machine If you were prescribed a CPM machine, it will start after your first post- operative appointment, at which time we will give you instructions on the range of motion settings and duration of treatment Physical therapy You will be given a prescription for physical therapy or occupational therapy at your first post-operative appointment. Typically, patients start therapy within 1 week of surgery Wound care and showering We will inspect your wound at your first post-operative visit, and may do a dressing change at that time. Most patients will be in a water-proof dressing that is removed 14 days after surgery. It is normal to see some dried blood on the dressing. Do not remove your dressing, paper strips or sutures yourself unless you are given permission. Showering is allowed the day after surgery. Do not scrub or remove any dressings. The wound should not be submerged underwater (i.e. in a bathtub or pool) until 4 weeks after surgery MICH stockings If you were given white stockings, these are to be worn at all times except to shower (on both legs) for the first 2 weeks after surgery. Driving You may not drive while taking narcotic pain medication or while in a cast, splint, sling or brace. You, the patient, need to make the final determination about when you are safe to drive, however, the earliest you may consider driving after surgery is below: Hand/Wrist/Elbow Surgery: 3 days Shoulder Surgery: 2 weeks Hip,/Knee/Ankle Surgery: 4 weeks Fracture repair: 6 weeks Return to Work Your return to work depends on what surgery was done and what type of work you do. Please bring any paperwork your employer needs completed to your first post-operative visit. Also, bring a description of your job duties, as this helps us to understand what risks you may face at work. Travel Avoid long distance travel (greater than 1 hour) in airplanes and cars for the first 6 weeks after surgery. If you must travel, you need to have a Doppler ultrasound done before you travel to rule out a blood clot in your legs. Follow-up You should have a follow-up appointment already scheduled 1-2 days after surgery. If not, please contact our office to make this appointment before you leave the hospital. When to call the office It is normal to have swelling and bruising in the limb that was operated on. This will improve with time. It is also normal to have fevers for the first 2 days after surgery. Reasons you should call your doctor include: Uncontrolled p ain; Nausea, vomiting, or constipation that does not improve with medication; Fevers over 101.5, chills, sweats; Drainage or bleeding from the wound; Foul odor; Spreading areas of redness; Any other concerns. Contact Information Please call Dr. Walker's office at [phone] with any concerns. Pending Studies at Discharge: No Stand-Alone Forms: [facility] Medications and DC Order Prescriptions: New acetaminophen [Tylenol Extra Strength] 500 mg Tablet 1,000 mg PO Q8 30 Days Qty: 180 0RF oxycodone 5 mg Tablet 5 - 10 mg PO Q4H MDD Max 6/day PRN (Reason: Postoperative pain control) Qty: 28 0RF Eliquis 2.5 mg Tablet 2.5 mg PO BID 30 Days Qty: 60 0RF diclofenac sodium 75 mg tablet,delayed release (DR/EC) 75 mg PO BID 14 Days Qty: 28 0RF Continued citalopram [Celexa] 40 mg Tablet 20 mg PO HS atenolol 25 mg Tablet 25 mg PO HS trazodone 150 mg Tablet 150 mg PO HS lorazepam 1 mg Tablet 1 mg PO HS Eliquis 2.5 mg Tablet 2.5 mg PO BID Discharge Orders: Discharge Order (Routine); Ordered 12/01/24 Ordered By: Ruy Renee Admission Data Admit Date/Time: 11/30/24 14:29 Attending Provider: Erwin Walker Admit Provider: Erwin Walker Primary Care Provider: Benja Huff Other Providers: [facility],Home Healthcare; [facility],Referral [facility]
[2024-12-03] MEDS ORDERED: Scopolamine REMOVE TRANSDERM PATCH ONE (08:00)
--- NOTE | 2024-12-05 07:31 | Anesthesiology Progress Note ---
Date of Service December 05, 2024 Anesthesia Post Procedure Pain Intensity Left Hip: Pain Intensity: 5 Transfer of Care Handoff Completed per policy Notes Mental Status: alert / awake / arousable Patient Amnestic to Procedure: Yes Nausea / Vomiting: adequately controlled Pain: adequately controlled Airway Patency, RR, SpO2: stable & adequate BP & HR: stable & adequate Hydration State: stable & adequate Neuraxial Anesthesia: was administered and sensory block is resolving Anesthetic Complications: no major complications apparent
== END 2024-12-01 11:15 | disposition home health service (06) | DRG 470 ==
LOC: ASU 10:07 → 3E 14:29 → INTOOBSV 14:29